=== PATIENT | female | born 1985 | race Caucasian/White ===

== ENCOUNTER 2019-03-22 13:59 | Outpatient (CLI) | payer BC ==
--- NOTE | 2019-03-22 14:52 | MMO ---
Bilateral MAMMO Bilat Diag [facility]. CLINICAL HISTORY: Patient is 33 years old and is seen for diagnostic exam and palpable abnormality in the left breast. The patient has the following family history of breast cancer: maternal grandmother, at age 60. The patient has no personal history of cancer. The patient has a history of left Excisional Biopsy in 2012 - benign. VIEWS: The views performed were: bilateral craniocaudal with tomosynthesis; bilateral mediolateral oblique with tomosynthesis; bilateral mediolateral with tomosynthesis; and bilateral exaggerated craniocaudal. FILMS COMPARED: The present examination has been compared to prior imaging studies performed at [facility] on 06/20/2015, 04/21/2017 and 03/22/2019, and at [facility] on 02/05/2012. MAMMOGRAM FINDINGS: The breasts are heterogeneously dense, which could obscure a lesion on mammography. No mammographic or sonograhic abnormality is seen at the site of palpable concern in the left breast (7:00). There are no suspicious masses, suspicious calcifications, or new areas of architectural distortion. IMPRESSION: THERE IS NO MAMMOGRAPHIC EVIDENCE OF MALIGNANCY. AGE APPROPRIATE SCREENING BASED ON RISK FACTORS IS RECOMMENDED. THE RESULTS OF THIS EXAM WERE SENT TO THE PATIENT. ACR BI-RADS Category 2 - Benign finding MAMMOGRAPHY NOTE: 1. A negative mammogram report should not delay a biopsy if a dominant of clinically suspicious mass is present. 2. Approximately 10% to 15% of breast cancers are not detected by mammography. 3. Adenosis and dense breasts may obscure an underlying neoplasm. Reported by: HANNA VALDES MD Electonically Signed: [id number]
--- NOTE | 2019-03-22 15:20 | ULT ---
LEFT BREAST ULTRASOUND: 03/22/19 HISTORY: Palpable abnormality in the left breast at 7 o'clock position. FINDINGS: Correlation is made with mammograms same day. Sonographic evaluation of the region of palpable concern at the 7 o'clock position of the left breast demonstrates no abnormality. IMPRESSION: BIRADS 2: Benign Finding(s) Routine annual screening mammography (for women over age 40).
== END 2019-03-22 14:00 | disposition home or self-care (01) ==
LOC: BICMAMMO 13:59
PROVIDERS: ATTEND Obstetrics & Gynecology
DX: N63.24 Unspecified lump in the left breast, lower inner quadrant (principal); Z80.3 Family history of malignant neoplasm of breast; Z91.89 Other specified personal risk factors, not elsewhere classified
CPT/HCPCS: 77066; G0279